=== PATIENT | male | born 1995 | race Caucasian/White ===

== ENCOUNTER 2019-06-24 10:51 | Emergency (ER) | payer OTHER ==
[2019-06-24] MEDS: ACETAMINOPHEN 500 MG TAB PO ONE (11:18)
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
[2019-06-24 11:26] VITALS: O2SAT 97
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
[2019-06-24 14:04] VITALS: BP 109/72; TEMP 97.4
== END 2019-06-24 14:02 | disposition home or self-care (01) ==
LOC: ER 10:51
DX: T14.8XXA Other injury of unspecified body region, initial encounter (principal); M25.562 Pain in left knee; M25.552 Pain in left hip; R51 Headache; M47.812 Spondylosis without myelopathy or radiculopathy, cervical region; R56.9 Unspecified convulsions; I50.9 Heart failure, unspecified; V49.40XA Driver injured in collision with unspecified motor vehicles in traffic accident, initial encounter; Y92.410 Unspecified street and highway as the place of occurrence of the external cause

== ENCOUNTER 2019-07-16 09:19 | Inpatient (IN) | payer SELFPAY ==
[2019-07-16] MEDS ORDERED: ONDANSETRON INJ 4 MG/2 ML VIAL IV ONE (09:31)
[2019-07-16] MEDS ORDERED: HYDROmorphone HCL INJ 2 MG/ML VIAL IV ONE (09:31)
--- NOTE | 2019-07-16 09:37 | ED.PDOC ---
History of Present Illness - General Chief Complaint: General Stated Complaint: abscess under right arm Time Seen by Provider: 07/16/19 09:21 Source: patient, Vital Signs reviewed Additional Information: this is a patient wit history of seizure, occasional drinker, denies drugs and denies tobacco. that presents to the ER with a right armpit abscess. patient have been taking antibiotics topically and orally and with no improvement patient stated that he couldnt sleep last night due to pain patient was seen at the clinic and sent here for IV antibiotics. The nurse practitioner did not attempt to open the abscess. patient have been on antibiotics since saturday topical clindmicin and bactrim no travels and no sick contacts - History of Present Illness Severity: moderate Improving Factors: nothing Worsening Factors: nothing Associated Symptoms: denies symptoms Allergies/Adverse Reactions: Allergies NO KNOWN ALLERGY Allergy (Verified 06/24/19 11:13) Home Medications: Ambulatory Orders Acetaminophen [Tylenol] 650 mg PO Q6H PRN #30 tab 06/24/19 Ibuprofen 600 mg PO Q6H PRN #20 tab 06/24/19 Topiramate 300 mg PO DAILY 06/24/19 Review of Systems - Review of Systems Constitutional: Denies: see HPI, chills, diaphoresis, fever, malaise, weakness EENTM: Denies: eye pain, blurred vision, tearing, double vision, ear pain, ear discharge, nose pain, nose congestion, throat pain, throat swelling, mouth pain, mouth swelling Respiratory: Denies: cough, orthopnea, short of breath, stridor, wheezing Cardiology: Denies: chest pain, edema, palpitations, syncope Gastrointestinal/Abdominal: Denies: abdominal pain, constipation, diarrhea, nausea, vomiting Genitourinary: Denies: dysuria, frequency, hematuria, pain Musculoskeletal: Denies: back pain, gout, joint pain, joint swelling, muscle pain, muscle stiffness, neck pain Skin: Denies: change in color, change in hair/nails, dryness, lesions, lumps, rash Neurological: Denies: anxiety, depressed, emotional problems, headache, numbness, paresthesia, pre-existing deficit, tingling, tremors, weakness Endocrine: Denies: excessive sweating, flushing, intolerance to cold, intolerance to heat, increased hunger, increased thirst, increased urine, unexplained weight gain, unexplained weight loss Hematologic/Lymphatic: Denies: anemia, blood clots, easy bleeding, easy bruis ing, swollen glands All other Systems: Reviewed and Negative Past Medical History (General) - Patient Medical History Hx Seizures: Yes Hx Asthma: No Hx Congestive Heart Failure: Yes Hx Diabetes: No Hx Cancer: No - Vaccination History Hx Tetanus, Diphtheria Vaccination: No Hx Influenza Vaccination: No Hx Pneumococcal Vaccination: No - Social History Hx Tobacco Use: No Hx Alcohol Use: Yes - OCC Hx Substance Use: No Hx Substance Use Treatment: No Hx Depression: No Hx Physical Abuse: No Hx Emotional Abuse: No Hx Suspected Abuse: No Family Medical History - Family History Mother Family History: Unknown Living Status: Still Living Physical Exam - Physical Exam General Appearance: Alert, Anxious, Comfortable, Well Developed, Well Groomed, Well Hydrated, Well Nourished Eye Exam: bilateral normal Ears, Nose, Throat: hearing grossly normal, normal ENT inspection, normal pharynx Neck: non-tender, full range of motion, supple, normal inspection Respiratory: chest non-tender, lungs clear, normal breath sounds, no respiratory distress, no accessory muscle use Cardiovascular/Chest: normal peripheral pulses, regular rate, rhythm, no edema, no gallop, no JVD, no murmur Gastrointestinal/Abdominal: normal bowel sounds, non tender, soft, no organomegaly, no pulsatile mass Back Exam: normal inspection, no CVA tenderness, no vertebral tenderness Extremity: other - there is a fluctuating mass underneath the right arm pit with extensive redness extending into the the chest and medial aspect of the right arm 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 patient have been on antibiotics and it seems like the infection is not improving. I ordered labs and I also sent the fluid for culture. I ordered a dose of vancomycin and will consult with Hospitalist for admission. I suspect that this patient will benefit from an additional dose of IV abx 07/16/19 10:07 patient doesn't appear toxic Procedures - Incision and Drainage #1 Site: righ arm pit Procedure and Prep: betadine prep, pus drained Procedure Comments: using topical anesthesia, i was able to open the abscess and foul smelling greenish discharge came out. Pus was sent for culture. patient tolerated the procedure well and no complications Departure - Departure Clinical Impression: Abscess Disposition: Admit Patient Condition: Fair Departure Forms: ED Discharge - Pt. Copy, Patient Portal Self Enrollment Referrals: Dragan Wooten MD [Primary Care Provider] - 1-2 Weeks Home Medications: Ambulatory Orders Acetaminophen [Tylenol] 650 mg PO Q6H PRN #30 tab 06/24/19 Ibuprofen 600 mg PO Q6H PRN #20 tab 06/24/19 Topiramate 300 mg PO DAILY 06/24/19 Decision To Admit - Decistion To Admit Decision to Admit Reason: Admit from ER Decision to Admit Date: 07/16/19 Decision to Admit Time: 10:06
[2019-07-16] MEDS ORDERED: SODIUM CHLORIDE 0.9% 250ML 250 ML ONE ×2 (09:58→17:42)
[2019-07-16] MEDS ORDERED: VANCOMYCIN HCL INJ 1,000 MG VIAL IVPB ONE ×2 (09:58→17:42)
[2019-07-16] MEDS ORDERED: VANCOMYCIN HCL INJ 1,500 MG in SODIUM CHLORIDE 0.9% 250ML 250 ML IVPB SCH (10:00)
[2019-07-16] MEDS ORDERED: SODIUM CHLORIDE 0.9% (FLUSH) 10 ML SYG IV PRN (13:47)
[2019-07-16] MEDS ORDERED: ONDANSETRON INJ 4 MG/2 ML VIAL IV PRN (13:47)
[2019-07-16] MEDS ORDERED: diphenhydrAMINE HCL 50 MG/ML VIAL IV PRN (13:52)
[2019-07-16] MEDS ORDERED: IV SET AND CAP CHANGE INJ INJ SCH (14:00)
[2019-07-16] MEDS ORDERED: VANCOMYCIN PER PHARMACY INJ SCH (14:00)
[2019-07-16] MEDS: VANCOMYCIN HCL INJ 1,500 MG in SODIUM CHLORIDE 0.9% 250ML 250 ML IVPB SCH (18:07)
[2019-07-16] MEDS ORDERED: TOPIRAMATE 25 MG TAB PO SCH (21:00)
[2019-07-16] MEDS: SODIUM CHLORIDE 0.9% (FLUSH) 10 ML SYG IV SCH (21:48)
[2019-07-17] MEDS ORDERED: SODIUM CHLORIDE 0.9% 250ML 250 ML ONE ×2 (02:22→10:10)
[2019-07-17] MEDS ORDERED: VANCOMYCIN HCL INJ 1,000 MG VIAL IVPB ONE ×2 (02:23→10:10)
[2019-07-17] MEDS: VANCOMYCIN HCL INJ 1,500 MG in SODIUM CHLORIDE 0.9% 250ML 250 ML IVPB SCH ×2 (02:24→10:14)
[2019-07-17] MEDS ORDERED: VANCOMYCIN HCL INJ 500 MG VIAL ONE (02:25)
[2019-07-17] MEDS: SODIUM CHLORIDE 0.9% (FLUSH) 10 ML SYG IV SCH (08:45)
[2019-07-17] MEDS ORDERED: TOPIRAMATE 25 MG TAB PO SCH (09:00)
[2019-07-17 09:54] VITALS: O2SAT 97
[2019-07-17 10:17] VITALS: BP 128/71; TEMP 98.3
--- NOTE | 2019-07-21 14:56 | SSS ---
SUPERVISING PHYSICIAN: Hugo Monae MD DATE OF ADMISSION: 07/16/19 DATE OF DISCHARGE: 07/17/19 DISCHARGE DIAGNOSIS: 1. Cellulitis of right axilla. 2. History of seizure disorder. HISTORY OF PRESENT ILLNESS: This is a 24-year-old male patient who has a history of seizure disorder who presented to the Emergency Room with a right arm abscess. He had actually been taking some oral antibiotics for several days, but has had no improvement. He actually had some difficulty sleeping the night before. He came to the Emergency Room because his arm was hurting. He had been seen in the Urgent Care Clinic and sent to the Emergency Room by the SOFTWARE SALES EXECUTIVE. He was given Bactrim and topical clindamycin. In the Emergency Room, his vital signs were temperature 98.2, heart rate 87, blood pressure 127/82, respiratory rate 20, O2 saturation 98% on room air. Lab studies were done. CBC was unremarkable except hemoglobin slightly low at 13.4 and hematocrit 39.2. Electrolytes were within normal limits. Total bilirubin was 1.1, but the remainder of his liver enzymes were within normal limits. Blood cultures were drawn. He was given some fluids as well as a dose of vancomycin. I was called for hospital admission to give him some IV antibiotics. HOSPITAL COURSE: The patient was placed in observation and received some vancomycin per pharmacy protocol. He received 4 doses of vancomycin and his symptoms improved. The area in the axilla looked much less reddened and there was no drainage. He had no further complaints of pain. He will be discharged home on two antibiotics and he is in stable condition. PAST MEDICAL HISTORY: Seizure disorder. PAST SURGICAL HISTORY: None. OUTPATIENT MEDICATIONS: Topiramate. ALLERGIES: NO KNOWN DRUG ALLERGIES. SOCIAL HISTORY: He lives in [place]. He denies any tobacco use. He does drink alcohol on a social basis. He denies any illicit drug use. REVIEW OF SYSTEMS: Negative except that his right axilla hurts and he has had some drainage from it. PHYSICAL EXAMINATION: VITAL SIGNS: Temperature 98.3. Heart rate 77. Blood pressure 128/71. Respiratory rate 16. O2 saturation 97% on room air. GENERAL: This is a 24-year-old male patient who is sitting up in his hospital bed. He is in no acute distress. HEENT: Normocephalic, atraumatic. Pupils are equal and reactive. Oropharynx is clear. NECK: Supple without mass. RESPIRATORY: Essentially clear to auscultation bilaterally. CARDIOVASCULAR: Regular rate and rhythm. GASTROINTESTINAL: Abdomen is soft, nondistended, nontender. Bowel sounds are positive. EXTREMITIES: No cyanosis, clubbing or edema. Radial pulses are palpable at +2 bilaterally. NEUROLOGIC: Awake, alert and oriented times three. Cranial nerves II-XII are grossly intact as tested. SKIN: Warm and dry. He does have an abscess to the right armpit. It is much less erythematous than yesterday. It has no drainage. There is no fluctuance. LABORATORY: His followup CBC is unremarkable, but his ESR is high at 33. His followup CMP is unremarkable, but his CRP is 15.4. His wound culture is pending. DISCHARGE PLAN: The patient will be discharged home in stable condition. He is to resume his previous diet and increase his activity as tolerated. He is to continue his home medications and I have given him a prescription of doxycycline for 10 days and he is to resume his Bactrim as previously ordered. He has a followup appointment with Dr. Wooten on 07/23/19 at 4:00 PM. He is to return to the hospital or followup with Dr. Wooten for any problem or complications. DISCHARGE MEDICATIONS: 1. Topiramate. 2. Bactrim. 3. Doxycycline. #[id number] MTDD
== END 2019-07-17 13:17 | disposition home or self-care (01) | DRG 603 ==
LOC: ER 09:19 → OBSVTOIN 11:32 → MS 11:32
PROVIDERS: ADMIT Nurse Practitioner Acute Care; ATTEND Nurse Practitioner Acute Care
DX: L03.111 Cellulitis of right axilla (principal); G40.909 Epilepsy, unspecified, not intractable, without status epilepticus; Z79.899 Other long term (current) drug therapy

== ENCOUNTER 2019-09-15 10:57 | Emergency (ER) | payer OTHER, SELFPAY ==
[2019-09-15] MEDS ORDERED: LIDOCAINE 2 % GEL 5 ML TUBE TOP ONE ×2 (12:00→12:01)
[2019-09-15 12:08] VITALS: O2SAT 99
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
[2019-09-15 13:10] VITALS: BP 123/77; TEMP 97.7
== END 2019-09-15 13:01 | disposition home or self-care (01) ==
LOC: ER 10:57
DX: T23.151A Burn of first degree of right palm, initial encounter (principal); T31.0 Burns involving less than 10% of body surface; X16.XXXA Contact with hot heating appliances, radiators and pipes, initial encounter; Y92.9 Unspecified place or not applicable; Y99.0 Civilian activity done for income or pay